=== PATIENT | female | born 1945 | race Caucasian/White ===

== ENCOUNTER 2020-04-28 20:37 | Outpatient (REF) | payer MEDICARE, OTHER, SELFPAY ==
[2020-04-28 21:32] LABS: ALT 22 U/L (14-59); AST 17 U/L (15-37); Albumin 3.6 g/dL (3.4-5.0); Alkaline Phosphatase 58 U/L (46-116); Anion Gap 11.2 mmol/L (3-11); BUN 17 mg/dL (7-18); Bilirubin, Total 0.2 mg/dL (0.2-1.0); CO2 26.8 mmol/L (21.0-32.0); CREATININE 0.5 mg/dL (0.55-1.02); Calcium 9.6 mg/dL (8.5-10.1); Chloride 100 mmol/L (98-107); Glucose 89 mg/dL (74-106); Potassium 4.2 mmol/L (3.5-5.1); Sodium 138 mmol/L (136-145); Total Protein 6.4 g/dL (6.4-8.2)
== END 2020-04-28 20:38 | disposition home or self-care (01) ==
LOC: NCHCN 20:37
PROVIDERS: PCP Internal Medicine; Visit Provider Nurse Practitioner Family
DX: I10 Essential (primary) hypertension (principal)
CPT/HCPCS: 80053

== ENCOUNTER 2020-05-25 20:10 | Outpatient (REF) | payer MEDICARE, OTHER, SELFPAY | END 2020-05-25 20:11 | disposition home or self-care (01) | LOC: NCHCN 20:10 | PROVIDERS: PCP Internal Medicine; Visit Provider Nurse Practitioner Family | DX: R39.15 Urgency of urination (principal) | CPT/HCPCS: 87086 ==

== ENCOUNTER 2020-06-01 15:16 | Outpatient (REF) | payer MEDICARE, OTHER, SELFPAY ==
[2020-06-01 20:16] LABS: HCT 31.8 % (36.0-46.0); HGB 9.9 g/dL (11.2-15.7); MCH 25.6 pg (27.0-33.0); MCHC 31.1 % (32.0-36.0); MCV 82.2 fL (80-95); Platelet Count 522 10^3/uL (130-400); RBC 3.87 10^6/uL (3.93-5.22); RDW 14.9 % (11.7-14.6); RDW-SD 44.4 fL; WBC 10.32 10^3/uL (4.4-10.8)
[2020-06-01 20:48] LABS: Iron 29 ug/dL (50-170); Total Iron Binding Capacity 452 ug/dL (250-450); Transferrin Sat 6 % (15-50)
[2020-06-01 20:54] LABS: COMMENT (LAB VIEW ONLY) 18.92 mg/dL; Microalb ug/mg Crea 23.3 ug/mg Cr
[2020-06-01 21:08] LABS: Anion Gap 9.3 mmol/L (3-11); BUN 20 mg/dL (7-18); CO2 28.7 mmol/L (21.0-32.0); CREATININE 0.7 mg/dL (0.55-1.02); Calcium 10.4 mg/dL (8.5-10.1); Chloride 102 mmol/L (98-107); Ferritin 11 ng/mL (8-252); Folate 5.7 ng/mL (8.6-20.0); Glucose 89 mg/dL (74-106); Potassium 4.5 mmol/L (3.5-5.1); Sodium 140 mmol/L (136-145); Vitamin B12 342 pg/mL (193-986)
== END 2020-06-01 15:17 | disposition home or self-care (01) ==
LOC: NCHCN 15:16
PROVIDERS: PCP Internal Medicine; Visit Provider Nurse Practitioner Family
DX: Z01.818 Encounter for other preprocedural examination (principal)
CPT/HCPCS: 80048; 85027; 82043; 82570; 82607; 82728; 82746; 83540; 83550

== ENCOUNTER 2020-06-27 10:45 | Outpatient (REF) | payer MEDICARE, OTHER, SELFPAY ==
[2020-06-27 15:20] LABS: BUN 14 mg/dL (7-18); CREATININE 0.6 mg/dL (0.55-1.02); Calcium 9.4 mg/dL (8.5-10.1); Chloride 100 mmol/L (98-107); Glucose 79 mg/dL (74-106); Potassium 4.1 mmol/L (3.5-5.1); Sodium 138 mmol/L (136-145)
[2020-06-27 15:32] LABS: HCT 37.4 % (36.0-46.0); HGB 11.7 g/dL (11.2-15.7); MCH 26.6 pg (27.0-33.0); MCHC 31.3 % (32.0-36.0); MPV 11.1 fL (8.0-11.0); Platelet Count 370 10^3/uL (130-400); RDW 19.6 % (11.7-14.6); RDW-SD 59.3 fL; WBC 5.49 10^3/uL (4.4-10.8)
== END 2020-06-27 10:46 | disposition home or self-care (01) ==
LOC: NCHCN 10:45
PROVIDERS: PCP Internal Medicine; Visit Provider Nurse Practitioner Family
DX: D50.9 Iron deficiency anemia, unspecified (principal)
CPT/HCPCS: 80048; 85027

== ENCOUNTER 2020-07-14 08:13 | Outpatient (REF) | payer MEDICARE, OTHER, SELFPAY ==
[2020-07-14 13:05] LABS: HCT 41.1 % (36.0-46.0); HGB 13.1 g/dL (11.2-15.7); MCH 27.6 pg (27.0-33.0); MCHC 31.9 % (32.0-36.0); MCV 86.5 fL (80-95); MPV 11.2 fL (8.0-11.0); Platelet Count 320 10^3/uL (130-400); RBC 4.75 10^6/uL (3.93-5.22); RDW 19.8 % (11.7-14.6); RDW-SD 62.3 fL; WBC 5.01 10^3/uL (4.4-10.8)
[2020-07-14 13:32] LABS: Anion Gap 11.8 mmol/L (3-11); BUN 11 mg/dL (7-18); CO2 26.2 mmol/L (21.0-32.0); CREATININE 0.6 mg/dL (0.55-1.02); Calcium 9.4 mg/dL (8.5-10.1); Chloride 100 mmol/L (98-107); Ferritin 296 ng/mL (8-252); Folate 8.7 ng/mL (8.6-20.0); Glucose 79 mg/dL (74-106); Potassium 4.7 mmol/L (3.5-5.1); Sodium 138 mmol/L (136-145)
[2020-07-14 13:45] LABS: Iron 46 ug/dL (50-170); Total Iron Binding Capacity 311 ug/dL (250-450); Transferrin Sat 15 % (15-50)
== END 2020-07-14 08:14 | disposition home or self-care (01) ==
LOC: NCHCN 08:13
PROVIDERS: PCP Internal Medicine; Visit Provider Nurse Practitioner Family
DX: R63.4 Abnormal weight loss (principal); M16.12 Unilateral primary osteoarthritis, left hip; D50.8 Other iron deficiency anemias
CPT/HCPCS: 80048; 85027; 82728; 82746; 83540; 83550

== ENCOUNTER 2020-07-26 23:10 | Outpatient (REF) | payer MEDICARE, OTHER, SELFPAY ==
[2020-07-26 21:51] LABS: ALT 39 U/L (14-59); AST 19 U/L (15-37); Albumin 4.3 g/dL (3.4-5.0); Alkaline Phosphatase 73 U/L (46-116); Bilirubin, Total 0.3 mg/dL (0.2-1.0); Total Protein 7.1 g/dL (6.4-8.2)
[2020-07-26 22:10] LABS: Bilirubin, Direct 0.1 mg/dL (0.0-0.2)
== END 2020-07-26 23:11 | disposition home or self-care (01) ==
LOC: NCHCN 23:10
PROVIDERS: PCP Internal Medicine; Visit Provider Nurse Practitioner Family
DX: R63.4 Abnormal weight loss (principal)
CPT/HCPCS: 80076

== ENCOUNTER 2020-09-18 12:46 | Outpatient (REF) | payer MEDICARE, OTHER, SELFPAY ==
[2020-09-18 21:20] LABS: Abs Immature Grans 0.02 10^3/uL (0.0-0.06); Absolute Basophil Count 0.06 10^3/uL (0.0-0.2); Absolute Eosinophil Count 0.13 10^3/uL (0.0-0.7); Absolute Lymphocyte Count 1.92 10^3/uL (1.2-3.4); Absolute Neutrophil Count 5.63 10^3/uL (1.2-6.7); Basophils % 0.7; Eosinophils % 1.5; HCT 42.2 % (36.0-46.0); HGB 13.5 g/dL (11.2-15.7); Immature Grans % 0.2; Lymphocytes % 22.7; MCH 29.3 pg (27.0-33.0); MCV 91.5 fL (80-95); MPV 9.7 fL (8.0-11.0); Monocytes % 8.3; Neutrophils % 66.6; Nucleated RBC 0 %; Platelet Count 327 10^3/uL (130-400); RBC 4.61 10^6/uL (3.93-5.22); RDW 15.9 % (11.7-14.6); RDW-SD 52.8 fL; WBC 8.46 10^3/uL (4.4-10.8)
[2020-09-18 21:48] LABS: Iron 60 ug/dL (50-170); Total Iron Binding Capacity 306 ug/dL (250-450); Transferrin Sat 20 % (15-50)
[2020-09-18 21:54] LABS: ALT 32 U/L (14-59); AST 17 U/L (15-37); Albumin 4.1 g/dL (3.4-5.0); Alkaline Phosphatase 78 U/L (46-116); Anion Gap 5.7 mmol/L (3-11); BUN 23 mg/dL (7-18); Bilirubin, Total 0.2 mg/dL (0.2-1.0); CO2 26.3 mmol/L (21.0-32.0); CREATININE 0.4 mg/dL (0.55-1.02); Calcium 9.4 mg/dL (8.5-10.1); Chloride 100 mmol/L (98-107); Ferritin 157 ng/mL (8-252); Glucose 99 mg/dL (74-106); Potassium 4.6 mmol/L (3.5-5.1); Sodium 132 mmol/L (136-145); TSH (W/Ref FT4) 0.82 uIU/mL (0.36-3.74)
[2020-09-18 22:06] LABS: Vitamin D 25 Total 49.1 ng/mL (30-100)
== END 2020-09-18 12:47 | disposition home or self-care (01) ==
LOC: NCHCN 12:46
PROVIDERS: PCP Internal Medicine; Visit Provider Internal Medicine
DX: E55.9 Vitamin D deficiency, unspecified; R63.4 Abnormal weight loss
CPT/HCPCS: 80053; 82306; 82728; 83540; 83550; 84443; 85014; 85018; 85025

== ENCOUNTER 2020-10-23 15:56 | Outpatient (REF) | payer MEDICARE, OTHER, SELFPAY ==
[2020-10-23 17:45] LABS: Anion Gap 13.9 mmol/L (3-11); BUN 21 mg/dL (7-18); CO2 22.1 mmol/L (21.0-32.0); CREATININE 0.5 mg/dL (0.55-1.02); Calcium 8.7 mg/dL (8.5-10.1); Chloride 105 mmol/L (98-107); Glucose 91 mg/dL (74-106); Potassium 3.9 mmol/L (3.5-5.1); Sodium 141 mmol/L (136-145)
== END 2020-10-23 15:57 | disposition home or self-care (01) ==
LOC: NCHCN 15:56
PROVIDERS: PCP Internal Medicine; Visit Provider Internal Medicine
DX: E87.1 Hypo-osmolality and hyponatremia (principal); B96.81 Helicobacter pylori [H. pylori] as the cause of diseases classified elsewhere
CPT/HCPCS: 80048

== ENCOUNTER 2020-10-26 14:59 | Outpatient (REF) | payer MEDICARE, SELFPAY ==
[2020-10-31 14:58] LABS: Helicobacter pylori Ag, Feces Negative (Negative)
== END 2020-10-26 15:00 | disposition home or self-care (01) ==
LOC: NCHCN 14:59
PROVIDERS: PCP Internal Medicine; Visit Provider Internal Medicine
DX: B96.81 Helicobacter pylori [H. pylori] as the cause of diseases classified elsewhere (principal); R63.4 Abnormal weight loss
CPT/HCPCS: 87338

== ENCOUNTER 2021-04-24 18:18 | Outpatient (REF) | payer MEDICARE, OTHER, SELFPAY ==
[2021-04-24 17:36] LABS: Anion Gap 9.8 mmol/L (3-11); BUN 22 mg/dL (7-18); CO2 24.2 mmol/L (21.0-32.0); CREATININE 0.5 mg/dL (0.55-1.02); Calcium 8.9 mg/dL (8.5-10.1); Calculated LDL 117 mg/dL (<100); Chloride 103 mmol/L (98-107); Cholesterol 216 mg/dL (<200); Glucose 92 mg/dL (74-106); HDL Cholesterol 88 mg/dL (40-60); Potassium 4.5 mmol/L (3.5-5.1); Sodium 137 mmol/L (136-145); Triglyceride 58 mg/dL (<150)
== END 2021-04-24 18:19 | disposition home or self-care (01) ==
LOC: NCHCN 18:18
PROVIDERS: PCP Internal Medicine; Visit Provider Nurse Practitioner Family
DX: Z00.00 Encounter for general adult medical examination without abnormal findings (principal); R63.4 Abnormal weight loss; I10 Essential (primary) hypertension
CPT/HCPCS: 80048; 80061

== ENCOUNTER 2022-11-18 14:14 | Outpatient (REF) | payer MEDICARE, SELFPAY ==
[2022-11-18 16:31] LABS: Anion Gap 7.9 mmol/L (3-11); BUN 22 mg/dL (7-18); CO2 26.1 mmol/L (21.0-32.0); CREATININE 0.7 mg/dL (0.55-1.02); Calcium 9.4 mg/dL (8.5-10.1); Chloride 102 mmol/L (98-107); Estimated GFR 90.14 (mL/min/1.73m2); Glucose 96 mg/dL (74-106); Potassium 4.3 mmol/L (3.5-5.1); Sodium 136 mmol/L (136-145)
[2022-11-18 17:38] LABS: Vitamin D 25 Total 36.6 ng/mL (30-100)
== END 2022-11-18 14:15 | disposition home or self-care (01) ==
LOC: NCHCN 14:14
PROVIDERS: PCP Internal Medicine; Visit Provider Nurse Practitioner Family
DX: D50.8 Other iron deficiency anemias (principal); E55.9 Vitamin D deficiency, unspecified; Z51.81 Encounter for therapeutic drug level monitoring
CPT/HCPCS: 80048; 82306; 83735

== ENCOUNTER 2023-11-25 18:39 | Outpatient (REF) | payer MEDICARE, SELFPAY ==
--- OUTSIDE RECORDS SUMMARY | 2023-11-25 18:49 | XMS_ITS | Encounter Summary ---
Author Organization [facility] Address [address] [place] [address] Care Team Providers Care Theatrical Agent Name Role Phone Adela Cohn CONTAMINATION CONSULTANT Primary Care Provider [phone] Reason for Visit * Reason Comments Follow-up left leg numbness, r ight leg just starting to have issues Encounter Details Date Type Department Care Team (Latest Contact Info) Description 08/22/2021 11:45 EDT Office Visit [facility] Vascular Surgery - Main [place] [address] [place] [address] Emigdio Angel MD Venous insufficiency (Primary Dx) Social History Tobacco Use Types Packs/Day Years Used Date Smoking Tobacco: Never Smokeless Tobacco: Never Sex and Gender Information Value Date Recorded Sex Assigned at Not on file Gender Identity Not on file Sexual Orientation Not on file documented as of this encounter Last Filed Vital Signs Vital Sign Reading Time Taken Comments Blood Pressure 120/80 08/22/2021 1149 EDT Pulse 81 08/22/2021 1149 EDT Temperature - - Respiratory Rate - - Oxygen Saturation 100% 08/22/2021 1149 EDT Inhaled Oxygen Concentration - - Weight - - Height - - Body Mass Index - - documented in this encounter Progress Notes * Emigdio Angel MD - 08/22/2021 1145 EDT CC: RLE spider veins SUBJECTIVE: Patient is very and seen for her left leg venous insufficiency. Patient follows up today with a right lower extremity venous ultrasound. She has painful bulging veins in that leg as well. No past medical history on file. There is no problem list on file for this patient. No past surgical history on file. Family History Problem Relation Age of Onset ??? Heart Disease Mother ??? Stroke Father ??? Varicose Veins Maternal Aunt ??? Varicose Veins Maternal Uncle ??? Varicose Veins Paternal Aunt ??? Varicose Veins Paternal Uncle Social History Socioeconomic History ??? Marital status: Spouse name: Not on file ??? Number of children: Not on file ??? Years of education: Not on file ??? Highest education level: Not on file Occupational History ??? Not on file Tobacco Use ??? Smoking status: Never Smoker ??? Smokeless tobacco: Never Used Substance and Sexual Activity ??? Alcohol use: Not on file ??? Drug use: Not on file ??? Sexual activity: Not on file Other Topics Concern ??? Not on file Social History Narrative ??? Not on file Social Determinants of Health Financial Resource Strain: Not on file Food Insecurity: Not on file Transportation Needs: Not on file Physical Activity: Not on file Stress: Not on file Social Connections: Not on file Current Outpatient Medications Medication ??? alendronate (FOSAMAX) 35 mg tablet ??? ascorbic acid (VITAMIN C ORAL) ??? calcium carbonate (TUMS) 200 mg calcium (500 mg) tablet,chewable ??? cholecalciferol, Vitamin D3, (VITAMIN D3) 50 mcg (2,000 unit) tablet ??? omeprazole (PRILOSEC) 20 mg capsule No current facility-administered medications for this visit. Allergies Allergen Reactions ??? Epinephrine Flushing OBJECTIVE: Physical Exam: GEN: alert, cooperative and no distress HEENT: eoemi LUNGS: clear to auscultation bilaterally HEART: regular rate and rhythm ABDOMEN: soft, non-tender; bowel sounds normal; no masses, no organomegaly EXTREMITIES: extremities normal, atraumatic, no cyanosis or edema and varicose veins noted SKIN: Skin color, texture, turgor normal. No rashes or lesions VASCULAR: warm, pink, capillary refill brisk ? DIAGNOSTIC DATA: No reflux noted in the right deep or superficial veins. The right great saphenous vein is not a single continuous vessel starting at the distal thigh. No evidence of deep or superficial venous thrombosis in the right lower extremity. Right Diameter Right Reflux Great Saphenous Junction 0.37 cm 0.0 s Great Saphenous Prox Thigh 0.28 cm 0.0 s Great Saphenous Mid Thigh 0.27 cm 0.0 s Small Saphenous Prox Calf 0.16 cm 0.0 s IMPRESSION: RLE spider veins PLAN: - set up for RLE sclero injections documented in this encounter Plan of Treatment Not on file documented as of this encounter Visit Diagnoses Diagnosis Venous insufficiency- Primary Unspecified venous (peripheral) insufficiency documented in this encounter Care Teams Theatrical Agent Relationship Specialty Start Date End Date Adela Cohn FNP [address] [place] [id number] PCP - General Family Medicine - Primary Care 06/08/21 documented as of this encounter
--- OUTSIDE RECORDS SUMMARY | 2023-11-25 18:49 | XMS_ITS | Encounter Summary ---
Author Organization [facility] Address [address] [place] [address] Care Team Providers Care Telecom Specialist Name Role Phone Adela Cohn UNION ORGANIZER Primary Care Provider Reason for Visit * Reason Comments New Patient Visit Left leg varicose ve ins * Referral (Routine) - Receiving Office to Obtain Authorization Specialty Diagnoses / Procedures Referred By Bobo bunch Referred To Contact Vascular Surgery Diagnoses Asymptomatic varicose veins of unspecified lower extremity Adela Cohn, UNION ORGANIZER [address] [place] [address] Surgery [address] [place] [id number] Referral ID Status Reason Start Date Expiration Date Visits Requested Visits Authorized [id number] Receiving Office to Obtain Authorization 1 1 Encounter Details Date Type Department Care Team (Latest Contact Info) Description 06/08/2021 13:00 EDT Initial consult [facility] Vascular Surgery - Main [place] [address] [place] [address] Emigdio Angel MD Venous insufficiency of left lower extremity (Primary Dx) Social History Tobacco Use Types Packs/Day Years Used Date Smoking Tobacco: Never Smokeless Tobacco: Never Sex and Gender Information Value Date Recorded Sex Assigned at Not on file Gender Identity Not on file Sexual Orientation Not on file documented as of this encounter Last Filed Vital Signs Vital Sign Reading Time Taken Comments Blood Pressure 130/88 06/08/2021 1221 EDT Pulse 94 06/08/2021 1218 EDT Temperature - - Respiratory Rate - - Oxygen Saturation 98% 06/08/2021 1218 EDT Inhaled Oxygen Concentration - - Weight 40.8 kg (90 lb) 06/08/2021 1218 EDT Height 147.3 cm (4' 10) 06/08/2021 1218 EDT Body Mass Index 18.81 06/08/2021 1218 EDT documented in this encounter Progress Notes * Emigdio Angel MD - 06/08/2021 1300 EDT [facility] Vascular Surgery H & P Consultation Note - Initial Visit Note Date: 06/08/2021 Patient: Cheri Ibrahim Subjective: Cheri Ibrahim is a 75 y.o. female who presents today for New Patient Visit (Left leg varicose veins) Consult requested by dAela Cohn Patient History of Present Illness: The patient complains of varicose veins in the left leg. The patient is quite active and with her bulging veins has associated swelling, and aches. She denies history of ulcer, DVT, or bleeding. She is worn compression stockings for over 3 months and it helped her symptoms. Her pain can be 4 out of10. The patient's history, allergies, and medications were documented, reviewed, and updated. Medications: Current Outpatient Medications Medication ??? alendronate (FOSAMAX) 35 mg tablet ??? ascorbic acid (VITAMIN C ORAL) ??? calcium carbonate (TUMS) 200 mg calcium (500 mg) tablet,chewable ??? cholecalciferol, Vitamin D3, (VITAMIN D3) 50 mcg (2,000 unit) tablet ??? omeprazole (PRILOSEC) 20 mg capsule No current facility-administered medications for this visit. History was documented as follows: PMH PSH No past medical history on file. No past surgical history on file. Social History Family History Social History Tobacco Use ??? Smoking status: Never Smoker ??? Smokeless tobacco: Never Used Substance Use Topics ??? Alcohol use: Not on file Family History Problem Relation Age of Onset ??? Heart Disease Mother ??? Stroke Father ??? Varicose Veins Maternal Aunt ??? Varicose Veins Maternal Uncle ??? Varicose Veins Paternal Aunt ??? Varicose Veins Paternal Uncle Allergies Allergies Allergen Reactions ??? Epinephrine Flushing Review of Systems A comprehensive review of systems was negative. Objective: Physical Examination: Vitals: BP 130/88 (BP Cuff Location: Right arm) Pulse 94 Ht (!) 147.3 cm (58) Wt (!) 40.8 kg(90 lb) SpO2 98% BMI 18.81 kg/m?? General Healthy-appearing 75 y.o. white female in no apparent distress who looks her stated age. Eyes: scelra non-icteric Musculoskeletal: No joint effusions or tenderness. Extremities: No bony abnormality. No joint effusions. Varicose veins palpable left leg with swelling Skin: Warm and pink. No lesions or stasis dermatitis. Hematologic: There is no bruising. Neurologic: Gait and stance are normal; Strength Upper and lower extremities, 5/5. There is no tremor or slurred speech. Vascular: warm, pink, palp pulses Non-invasive Vascular Lab Tests: ??? Deep and segmental superficial venous insufficiency noted within the left lower extremity. ??? No evidence of deep or superficial venous thrombosis in the left lower extremity. Left Diameter Left Reflux Great Saphenous Junction 0.33 cm 0.0 s Great Saphenous Mid Thigh 0.21 cm 1.4 s Small Saphenous Prox Calf 0.22 cm 0.0 s Anterior Saphenous 0.16 cm 0.0 s The left femoral vein in the proximal thigh had more than 2 seconds of reflux. The left femoral vein in the mid thigh had 0.5 to 2 seconds of reflux. The left femoral vein in the distal thigh had 0.5to 2 seconds of reflux. Varicose Vein Conservative Measures Laterality: left Has the patient worn compression stockings for minimum of 3 months? Yes How effective are the stockings? Did they help or hinder? Help Any edema or swelling in Legs? Yes Any bleeding? No Does patient avoid standing or sitting in one position for more than 30 minutes? Yes Does the patient elevate their legs above level of the heart during the day to alleviate pain? Yes How often? daily Does patient avoid sitting with legs crossed? Yes How often does the patient exercise? (I.e walking) time/week? Duration? How far? daily What is the patient's pain levels on a scale of 1-10 (10 being the worst)? 4 Do the varicose veins effect the patient's activities of daily living? Yes What activities? exercise Does the patient take any medications for pain? No If so, what? n/a Does the patient tolerate NSAID'S? Yes Does the patient avoid alcohol? Yes Does the patient avoid high sodium foods? Yes Has the patient lost weight? No Has the patient failed compression stock wearing? Yes Assessment: Symptomatic left varicose veins and venous insufficiency. We discussed varicose veins and their pathophysiology. I explained that we cannot cure varicose veins and that they could recur later on in life, even if we treat those that are present today. I explained that invasive treatment of varicose veins was elective and that there was no risk to life or limb from varicose veins. I discussed the options for treatment, including compression, sclerotherapyand surgery. We discussed the risks and benefits of surgery, including the risks of anesthesia and the risk of bleeding or infection. We also discussed that surgery would produce scars and surgery would require time off from work. We discussed newer surgical techniques including radiofrequency ablat ion (???closure procedure?? ). We discussed injection sclerotherapy. We discussed the risks of allergic reactions, ulceration and discoloration. In particular we discussed the cosmetic risk of discoloration from injection of varicose veins, something that we have little control over, unfortunately.We discussed the need to wear compression dressings for up to a week after injection of larger veins and that more than one injection session might be necessary. I also explained that treatment of spider veins or varicose veins for cosmetic reasons only would not be covered by insurance. Plan: - cont compression - LLE sclero Submitted by: Emigdio Angel MD CC: Adela Cohn documented in this encounter Plan of Treatment Not on file documented as of this encounter Visit Diagnoses Diagnosis Venous insufficiency of left lower extremity- Primary documented in this encounter Historical Medications * This list may reflect changes made after this encounter. Medication Sig Dispensed Refills Start Date End Date ascorbic acid (VITAMIN C ORAL) Take by mouth. calcium carbonate (TUMS) 200 mg calcium (500 mg) tablet,chewable Take 1 Tablet by mouth 3 times daily. cholecalciferol, Vitamin D3, (VITAMIN D3) 50 mcg (2,000 unit) tablet Take by mouth. omeprazole (PRILOSEC) 20 mg capsule Take 20 mg by mouth as needed. alendronate (FOSAMAX) 35 mg tablet Take 70 mg by mouth every 7 days. With full glass water,on empty stomach; nothing by mouth or lie down for next 30 min added in this encounter Care Teams Telecom Specialist Relationship Specialty Start Date End Date Adela Cohn FNP [address] [place] [phone] PCP - General Family Medicine - Primary Care 06/08/21 documented as of this encounter
--- OUTSIDE RECORDS SUMMARY | 2023-11-25 18:49 | XMS_ITS ---
Author Organization Unknown Address [address] [place] [phone] Phone Care Team Providers Care Pelletizer Name Role Phone SHERI GIBSON Attending Unavail able MARTY James Primary Unavailable Social History Type Status Start Date End Date Code Code Syst em Smoking History Never smoker (Never Smoked) 233754301 SNOMED CT Sex Female Hospital Discharge Instructions Should you have any questions prior to discharge, please contact a member of your healthcare team. If you have left the hospital and have any questions, please contact your primary care physician. Reason For Referral No Data Found Allergies and Adverse Reactions Allergy Substance Reaction Severity Start Date Concern Status Co de Code System No Known Drug Allergies Active 384259310 SNOMED-CT Plan of Treatment Pre-Op Testing 07/13/2020 Pre-Op Testing 05/25/2020 BONE DENSITY DEXA SPINE & HIP 4 BONE DENSITY DEXA SPINE & HIP 2 Encounters Encounter Diagnosis Start Date Code Code Sys tem Obstructive sleep apnea (adult) (pediatric) 09/02/2021 SNOMED-CT Personal Care Team Section Performer Name Performer Role Active Date Inactive Da te
--- OUTSIDE RECORDS SUMMARY | 2023-11-25 18:49 | XMS_ITS | Referral Summary ---
Author Organization [facility] Address [address] [place] [address] Care Team Providers Care Office Support Clerk Name Role Phone Adela Cohn Erika [facility] Primary Care Provider [phone] Allergies Active Allergy Reactions Criticality Noted Date Comments Epinephrine Flushing 06/08/2021 Medications Medication Sig Dispensed Refills Start Date End Date Status alendronate (FOSAMAX) 35 mg tablet Take 70 mg by mouth every 7 days. With full glass water,on empty stomach; nothing by mouth or lie down for next 30 min Active omeprazole (PRILOSEC) 20 mg capsule Take 20 mg by mouth as needed. Active cholecalciferol, Vitamin D3, (VITAMIN D3) 50 mcg (2,000 unit) tablet Take by mouth. Active calcium carbonate (TUMS) 200 mg calcium (500 mg) tablet,chewable Take 1 Tablet by mouth 3 times daily. Active ascorbic acid (VITAMIN C ORAL) Take by mouth. Active Social History Tobacco Use Types Packs/Day Years Used Date Smoking Tobacco: Never Smokeless Tobacco: Never Sex and Gender Information Value Date Recorded Sex Assigned at Not on file Gender Identity Not on file Sexual Orientation Not on file Last Filed Vital Signs Vital Sign Reading Time Taken Comments Blood Pressure 108/76 11/09/2021 0859 EDT Pulse 78 11/09/2021 0859 EDT Temperature - - Respiratory Rate - - Oxygen Saturation 98% 11/09/2021 0859 EDT Inhaled Oxygen Concentration - - Weight 40.8 kg (90 lb) 06/08/2021 1218 EDT Height 147.3 cm (4' 10) 06/08/2021 1218 EDT Body Mass Index 18.81 06/08/2021 1218 EDT Functional Status Functional Status Response Date of Assess ment Because of a physical, menta l, or emotional condition, does this person have difficulty doing errands alone such as visiting a doctor's office or shopping? No 10/12/2021 Cognitive Status Response Date of Assessm ent Because of a physical, menta l, or emotional condition, does this person have serious difficulty concentrating, remembering, or making decisions? No 10/12/2021 Plan of Treatment Not on file Care Teams Office Support Clerk Relationship Specialty Start Date End Date Adela Cohn FNP [address] [place] [phone] PCP - General Family Medicine - Primary Care 06/08/21
--- OUTSIDE RECORDS SUMMARY | 2023-11-25 18:49 | XMS_ITS | Encounter Summary ---
Author Organization [facility] Address [address] [place] [address] Care Team Providers Care Lining Ironer Name Role Phone Adela Cohn REFUELING RAMP ATTENDANT Primary Care Provider [phone] Reason for Visit * Reason Comments Injections Encounter Details Date Type Department Care Team (Latest Contact Info) Description 11/09/2021 9:00 EDT Procedure visit [facility] Vascular Surgery - Main [address] [address] Emigdio Angel MD Venous insufficiency (Primary Dx) [...] Index - - documented in this encounter Functional Status Functional Status Response Date of [...] concentrating, remembering, or making decisions? No 10/12/2021 documented as of this encounter Patient Instructions * Patient Instructions* Diandra Ziegler - 11/09/2021 9:00 EDT documented in this encounter Progress Notes * Emigdio Angel MD - 11/09/2021 0900 EDT 10/12/21 LLE sclero 1. VA INJECTION SCLEROSANT MULTIPLE INCMPTNT VEINS [41176 (CPT??)] Informed consent was obtained ahead of time. The patient was laid in the supine position in the clinic bed. The spider veins on her right leg were prepped with alcohol wipe and then injected with 0.1% sotradecol. 15 syringes were used, these with 1 mL within each. We used cotton and Coban for compression. The patient tolerated the procedure well. The patient suffers from pain and swelling in her legs from her venous disease * Barby Schneider RN - 11/09/2021 0900 EDT Sclero injection assistance provided to Dr. Angel. 15 total syringes used. Discharge instructions provided. Pt tolerated very well. I was supervised by Dr. Angel who was present and immediately available in the office suite. BARBY SCHNEIDER RN 11/12/2021 16:11 documented in this encounter Plan of Treatment Not on file documented as of this encounter Visit Diagnoses Diagnosis Venous insufficiency- Primary Unspecified venous (peripheral) insufficiency documented in this encounter Care Teams Lining Ironer Relationship Specialty Start Date End Date Adela Cohn FNP [address] [place] [phone] PCP - General Family Medicine - Primary Care 06/08/21 documented as of this encounter
--- OUTSIDE RECORDS SUMMARY | 2023-11-25 18:49 | XMS_ITS | Clinical Summary ---
Author Organization [facility] Address [address] [place] [address] Care Team Providers Care Spring Fitter Helper Name Role Phone Adela Cohn Erika [employer] Primary Care Provider [phone] Allergies Active Allergy Reactions Criticality Noted Date [...] (VITAMIN C ORAL) Take by mouth. Active Family History Medical History Relation Comments Stroke Father Varicose Veins Maternal Aunt Varicose Veins Maternal Uncle Heart Disease Mother Varicose Veins Paternal Aunt Varicose Veins Paternal Uncle Relation Status Comments Father Maternal Aunt Maternal Uncle Mother Paternal Aunt Paternal Uncle Social History Tobacco Use Types Packs/Day Years Used Date Smoking Tobacco: Never Smokeless Tobacco: Never Sex and Gender Information Value Date Recorded Sex Assigned at Not on file Gender Identity Not on file Sexual Orientation Not on file Obstetrics History Last Filed Vital Signs Vital Sign Reading Time Taken Comments Blood Pressure 108/76 11/09/2021 0859 EDT Pulse 78 11/09/2021 0859 EDT Temperature - - Respiratory Rate - - Oxygen Saturation 98% 11/09/2021 0859 EDT Inhaled Oxygen Concentration - - Weight 40.8 kg (90 lb) 06/08/2021 1218 EDT Height 147.3 cm (4' 10) 06/08/2021 1218 EDT Body Mass Index 18.81 06/08/2021 1218 EDT Plan of Treatment Health Maintenance Due Date Last Done Comments Hepatitis C Screen 1945 RSV Immunization ( o r 60+ Years) (1 - 1-dose 60+ series) 2006 Fall Risk Screening 11/21/2011 COVID-19 Vaccine (2022-24 season) 2022 Care Teams Spring Fitter Helper Relationship Specialty Start Date End Date Adela Cohn FNP [address] [place] [phone] PCP - General Family Medicine - Primary Care 06/08/21
--- OUTSIDE RECORDS SUMMARY | 2023-11-25 18:49 | XMS_ITS | Encounter Summary ---
Author Organization [facility] Address [address] [place] [address] Care Team Providers Care Wallpaper Hanger Helper Name Role Phone Unavailable Primary Care Provider Unavailabl e Encounter Details Date Type Department Care Team (Latest Contact Info) Description 06/28/2001 10:37 EDT - 06/28/2001 11:59 EDT Hospital Encounter [facility] Emergency Department - [facility] [address], [place] [id number] Emergency, Default, MD Discharge Disposition: Home or Self Care Social History Tobacco Use Types Packs/Day Years Used Date Smoking Tobacco: Never Assessed Sex and Gender Information Value Date Recorded Sex Assigned at Not on file Gender Identity Not on file Sexual Orientation Not on file documented as of this encounter Discharge Disposition Disposition Code Departure Means Destination Home or Self Care documented in this encounter Plan of Treatment Not on file documented as of this encounter Procedures Procedure Name Priority Date/Time Associated Diagnosis Comments THORACIC SPINE 3 VIEWS Routine 06/28/2001 12:44 EDT CERVICAL SPINE AP&LAT Routine 06/28/2001 12:44 EDT documented in this encounter Results * THORACIC SPINE 3 VIEWS (06/28/2001 12:44 EDT) Anatomical Region Laterality Modality Other 06/28/2001 12:4 4 EDT Narrative 12/07/2008 3:41 EDT S/P PAIN, LOADING, C-SPINE INJURY WITH LEFT UE PARASTESIS R/O FRACTURE THORACIC SPINE, THREE VIEWS, AND CERVICAL SPINE, TWO TO THREE VIEWS DATE: 06/28/2001 TIME: 1150 HISTORY: Cervical spine injury. Rule out fracture. FINDINGS: AP, lateral, and odontoid views of the cervical spine show normal vertebral alignment. No prevertebral soft tissue swelling is seen. The disc heights are well maintained. There is mild osteophyte formation at C5-6 and C6-7. C7-T1 is not well seen on these views, nor the tip of the odontoid. No definite fracture is seen. Three views of the thoracic spine show normal vertebral alignment. There are minimal degenerative changes. Minimal anterior wedging is seen at the T7 and T8 vertebral bodies. C7-T1 is seen on the swimmer's view and appears normal. Incidental note is made of calcified mediastinal nodes and a granuloma. IMPRESSIONS: 1. 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 No definite fracture is seen of the cervical spine. 2. Minimal anterior wedging at T7 and T8 with degenerative changes of the thoracic spine. No thoracic fracture is seen. /law Procedure Note Carlos Rodriguez MD / Des Chiu MD - 12/07/2008 S/P PAIN, LOADING, C-SPINE INJURY WITH LEFT UE PARASTESIS R/O FRACTURE THORACIC SPINE, THREE VIEWS, AND CERVICAL SPINE, TWO TO THREE VIEWS DATE: 06/28/2001 TIME: 1150 HISTORY: Cervical spine injury. Rule out fracture. FINDINGS: AP, lateral, and odontoid views of the cervical spine show normal vertebral alignment. No prevertebral soft tissue swelling is seen. The disc heights are well maintained. There is mild osteophyte formation at C5-6 and C6-7. C7-T1 is not well seen on these views, nor the tip of the odontoid. No definite fracture is seen. Three views of the thoracic spine show normal vertebral alignment. There are minimal degenerative changes. Minimal anterior wedging is seen at the T7 and T8 vertebral bodies. C7-T1 is seen on the swimmer's view and appears normal. Incidental note is made of calcified mediastinal nodes and a granuloma. IMPRESSIONS: 1. 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 No definite fracture is seen of the cervical spine. 2. Minimal anterior wedging at T7 and T8 with degenerative changes of the thoracic spine. No thoracic fracture is seen. /law Yessy SHAH DI[facility]NOSTIC I MAGING ORDERABLES * CERVICAL SPINE AP&LAT (06/28/2001 12:44 EDT) Anatomical Region Laterality Modality Other 06/28/2001 12:4 4 EDT Narrative 12/07/2008 3:41 EDT S/P PAIN, LOADING, C-SPINE INJURY WITH LEFT UE PARASTESIS R/O FRACTURE Procedure Note Carlos Rodriguez MD / Des Chiu MD - 12/07/2008 S/P PAIN, LOADING, C-SPINE INJURY WITH LEFT UE PARASTESIS R/O FRACTURE Yessy SHAH DIAGNOSTIC I MAGING ORDERABLES documented in this encounter Visit Diagnoses Not on filedocumented in this encounter
--- OUTSIDE RECORDS SUMMARY | 2023-11-25 18:49 | XMS_ITS | Encounter Summary ---
Author Organization [facility] Address [address] [place] [address] Care Team Providers Care Passenger Service Supervisor Name Role Phone Adela Cohn [facility] Primary Care Provider [phone] Reason for Visit * Vascular Lab (Routine) - Authorization Not Required Specialty Diagnoses / Procedures Referred By Contac t Referred To Contact Diagnoses Varicose veins of left lower extremity Procedures US VARICOSE VEIN DUPLEX Emigdio Angel MD [address] [place], [place] [id number] [place] [address] Vascular Lab Referral ID Status Reason Start Date Expiration Date Visits Requested Visits Authorized [id number] Authorization Not Required 04/27/2021 1 1 Encounter Details Date Type Department Care Team (Latest Contact Info) Description 06/08/2021 11:30 EDT Ancillary Procedure [facility] Vascular Surgery - Main [place] [address] [place] [address] Varicose veins of left lower extremity Social History Tobacco Use Types Packs/Day Years Used Date Smoking Tobacco: Never Smokeless Tobacco: Never Sex and Gender Information Value Date Recorded Sex Assigned at Not on file Gender Identity Not on file Sexual Orientation Not on file documented as of this encounter Plan of Treatment Not on file documented as of this encounter Procedures Procedure Name Priority Date/Time Associated Diagnosis Comments ORDERS - SCANNED 10/24/2021 10:0 7 EDT US VARICOSE VEIN DUPLEX LEFT Routine 06/08/2021 11:57 EDT Varicose veins of left lower extremity documented in this encounter Results * ORDERS - SCANNED (10/24/2021 10:07 EDT) 10/24/2021 10:0 7 EDT Scan 2 Row Boss Hoeing ADMISSION ORDERABLE S * US VARICOSE VEIN DUPLEX LEFT (06/08/2021 11:57 EDT) Left SSPC cielo 0.22 cm MERGE CARDIO Left GSJ cielo 0.33 cm MERGE CARDIO Left GSJ reflux 0.0 s MERGE CARDIO Left GSMT cielo 0.21 cm MERGE CARDIO Left GSMT reflux 1.4 s MERGE CARDIO Left SSPC reflux 0.0 s MERGE CARDIO Left AAS cielo 0.16 cm MERGE CARDIO Left AAS reflux 0.0 s MERGE CARDIO Anatomical Region Laterality Modality Vascular Ultrasound Narrative 06/08/2021 22:06 EDT ?Deep and segmental superficial venous insufficiency noted within the left lower extremity. ?No evidence of deep or superficial venous thrombosis in the left lower extremity. Left Lower Venous The left femoral vein in the proximal thigh had more than 2 seconds of reflux. The left femoral vein in the mid thigh had 0.5 to 2 seconds of reflux. The left femoral vein in the distal thigh had 0.5 to 2 seconds of reflux. Left Saphenous Venous The right greater saphenous vein was not visualized within the proximal thigh, consistent with prior procedure. Cluster of grapes sign seen in the mid thigh, with a short segment recannalization of the left greater saphenous vein. The distal thigh and knee segment of the great saphenous vein was not well visualized. Left Lower Venous Other The left external iliac, common femoral, proximal greater saphenous, proximal profunda femoris, femoral, popliteal, peroneal, and posterior tibial veins demonstrate normal Doppler flow/waveforms and compression. Venous HPI and Indications Varicose veins with prior left greater saphenous vein ablation Venous Past Medical History Varicose veins. Prior left greater saphenous vein ablation approx. 10 yrs ago- per patient Emigdio Angel MD IMG US VASCULAR O RDERABLES documented in this encounter Visit Diagnoses Diagnosis Varicose veins of left lower extremity documented in this encounter Care Teams Passenger Service Supervisor Relationship Specialty Start Date End Date Adela Cohn FNP [address] [place] [address] PCP - General Family Medicine - Primary Care 06/08/21 documented as of this encounter
--- OUTSIDE RECORDS SUMMARY | 2023-11-25 18:49 | XMS_ITS | Encounter Summary ---
Author Organization [facility] Address [address] [place] [address] Care Team Providers Care Drill Foreman Name Role Phone Adela Cohn [facility] Primary Care Provider [phone] Reason for Visit * Reason Comments Injections * Prior Authorization (Routine) - Closed Specialty Diagnoses / Procedures Referred By Contac t Referred To Contact Vascular Surgery Diagnoses Venous insufficiency (chronic) (peripheral) Procedures MI INJECTION SCLEROSANT MULTIPLE INCMPTNT VEINS Emigdio Angel MD [address] [place] [address] Emigdio Angel MD [address] [place] [id number] Referral ID Status Reason Start Date Expiration Date Visits Re quested Visits Authorized [id number] Closed 02/23/2022 1 1 Encounter Details Date Type Department Care Team (Latest Contact Info) Description 10/12/2021 9:00 EDT Procedure visit [facility] Vascular Surgery - Main [place] [address] [place] [address] Emigdio Angel MD Venous insufficiency (Primary Dx) Social History Tobacco Use Types Packs/Day Years Used Date Smoking Tobacco: Never Smokeless Tobacco: Never Sex and Gender Information Value Date Recorded Sex Assigned at Not on file Gender Identity Not on file Sexual Orientation Not on file documented as of this encounter Last Filed Vital Signs Vital Sign Reading Time Taken Comments Blood Pressure 126/78 10/12/2021 0856 EDT Pulse 75 10/12/2021 0856 EDT Temperature - - Respiratory Rate - - Oxygen Saturation 98% 10/12/2021 0856 EDT Inhaled Oxygen Concentration - - Weight [...] No 10/12/2021 documented as of this encounter Progress Notes * Emigdio Angel MD - 10/12/2021899 EDT CC: Varicose Veins Sclero injections left leg 1. MI INJECTION SCLEROSANT MULTIPLE INCMPTNT VEINS [05065 (CPT??)] Informed consent was obtained ahead of time. The patient was laid in the supine position in the clinic bed. The varicose veins on her left leg were prepped with alcohol wipe and then injected with 0.1% sotradecol. 13 syringes were used, these with 1 mL within each. We used cotton and Coban for compression. The patient tolerated the procedure well. * Gisele Madison RN - 10/12/2021899 EDT Used Sotradecol 1%, diluted to 0.1% with 9mL of normal saline and 1mL Sotradecol. [facility] 27549-021-82 Lot # [id number] and expiration date of 07/16. used 1.3mL of Sotradecol for the procedure. GISELE MADISON RN 10/12/2021 13:13 documented in this encounter Plan of Treatment Not on file documented as of this encounter Visit Diagnoses Diagnosis Venous insufficiency- Primary Unspecified venous (peripheral) insufficiency documented in this encounter Care Teams Drill Foreman Relationship Specialty Start Date End Date Adela Cohn FNP [address] [place] [phone] PCP - General Family Medicine - Primary Care 06/08/21 documented as of this encounter
--- OUTSIDE RECORDS SUMMARY | 2023-11-25 18:49 | XMS_ITS ---
Author Organization Unknown Address [address] [place] [phone] Phone Care Team Providers Care Aromatherapist Name Role Phone HOLLIS PATEL Attending Unavailable MARTY James Primary Unavailable Results XR PELVIS AND HIP LAT LT - C ompleted: 08/14/2021 10:21 LOINC: PELVIS AND LEFT HIP - 2 VIEW S:Comparison is made with 09/12/20. There are stable post-surgical changes of a left total hip replacement. The orthopaedic hardware appears in good position. The bones are stable and intact. Stable degenerative changes are seen in the right hip. There are degenerative changes seen in the lower lumbar spine. The soft tissues are unremarkable. IMPRESSION:Stable left THR. Dictated by: BALTA RODRIGUEZ MD Transcribed by: MARCIA 08/14/21/10:04 D Saturday, August 14, 2021 8:43:13 AM [id number] Electronically Reviewed and Signed By: SHILO RODRIGUEZ MD 08/14/21 19:26 Copy for: 185 [facility]ALTH INFORMATION MGMT Social History Type Status Start Date End Date Code Code Syst em Smoking History Never smoker (Never Smoked) 695025228 SNOMED CT Sex Female Hospital Discharge Instructions [...] Code System No Known Drug Allergies Active 296201610 SNOMED-CT Plan of Treatment Pre-Op Testing 07/13/2020 Pre-Op Testing 05/25/2020 BONE DENSITY DEXA SPINE & HIP 4 BONE DENSITY DEXA SPINE & HIP 2 Encounters Encounter Diagnosis Start Date Code Code Sys tem Hip joint prosthesis present 08/14/2021 690435932 SNOMED-CT Personal Care Team Section Performer Name Performer Role Active Date Inactive Da te
--- OUTSIDE RECORDS SUMMARY | 2023-11-25 18:49 | XMS_ITS | Encounter Summary ---
Author Organization [facility] Address [address] [place] [address] Care Team Providers Care Banquet Chef Name Role Phone Unknown, Provider Primary Care Provider [phone] Encounter Details Date Type Department Care Team (Late st Contact Info) Description 07/26/2013 Results [facility] [phone] Yung Talamantes PA [address] ,[facility] [address] [place] [address] Social History Tobacco Use Types Packs/Day Years Used Date Smoking Tobacco: Never Assessed Sex and Gender Information Value Date Recorded Sex Assigned at Not on file Gender Identity Not on file Sexual Orientation Not on file documented as of this encounter Plan of Treatment Not on file documented as of this encounter Procedures Procedure Name Priority Date/Time Associated Diagnosis Comments SURGICAL PATHOLOGY Routine 07/26/2013 9:26 EDT documented in this encounter Results * SURGICAL PATHOLOGY (07/26/2013 9:26 EDT) Pathology Report: SURGICAL PATHOLOGY REPORT Reports generated via electronic interface contain original data; however they are lacking the format of the original report. Caution should be taken when reading/interpreti ng unformatted reports. Name: ? ALFA CARDOZA ? Accession #: ? [id number] ? : ? 1945 (Age: 67) ??F ? Collect Date: ? 07/26/2013 ? Location: ? [facility] ? Receive Date: ? 07/26/2013 ? Provider: YUNG LOPEZ Copy to: MARIJA DYSON SWIMMING POOL SERVICER ? Final Pathologic Diagnosis: A. ??SKIN OF CHEEK, RIGHT MEDIAL MALAR, SHAVE BIOPSY: - Basal cell carcinoma, infiltrative type. ??See microscopic and comment. ?? - Lesion extends to peripheral edge and base of biopsy specimen. B. ??SKIN OF THIGH, RIGHT ANTERIOR PROXIMAL, PUNCH BIOPSY: - Lichenoid interface dermatitis. ?? Comment: In specimen B, the features are those of a lichenoid interface dermatitis. ??The features could be consistent with lichen planus in the correct clinical contact. (Dr. Garibay)/[facility] Microscopic Description: A-Emanating from the epidermis and extending into the dermis are irregularly shaped islands and cords of atypical basal cells. ??Many of the islands are small and angulate. ??The basal cells have scant cytoplasm and round dark nuclei. Mitotic figures and apoptotic bodies are evident. ??Some nuclei at the periphery of some of the larger islands have a palisaded arrangement. ??There is fibroplasia and myxoid change of the stroma with cleft formation between some of the islands and stroma. ? B-Sections consist of a punch biopsy of skin. ??There is basketweave to compacted orthohyperkeratosi s overlying an epidermis which shows evidence of vacuolar interface alteration. The keratinocytes are reactive with glassy eosinophilic cytoplasm. There is hypergranulosis. Within the dermis is an interstitial lymphomononuclear infiltrate which includes dermal melanophages. ??(Dr. Garibay)/n Document reviewed and electronically signed by: DYAN GARIBAY MD Report ??Date: 07/28/2013 14:59 By the signature above, the attending physician certifies that he/she has personally conducted a gross and/or microscopic examination of the described specimens and rendered or confirmed the above diagnosis. Specimen(s) Received: A. ??Right medial malar cheek B. ??Right anterior proximal thigh Clinical History: A. ??Papule, DDx: Neoplasm of uncertain behavior vs. basal cell carcinoma vs other; please check margins; would refer to Mohs; B. DDx: Lichen planus vs other; clinical diagnosis code: 238.2, 692.9 Gross Description: A. ?Received in formalin labelled with proper patient identification (initials R, K) and A. right medial malar cheek is a shave biopsy of an irregular carmichael-white scaled papule (0.3 x 0.3 x less than 0.1 cm). ??The margin is inked. Submitted intact in A1. B. ?Received in formalin labelled with proper patient identification (initials R, K) and D. right anterior proximal thigh is a punch biopsy of carmichael-white skin (0.3 cm in diameter and 0.2 cm in thickness). Submitted intact in B1. Maddison Carroll 07/27/2013 09:52 AM End of Report [facility] 07/26/2013 9:26 EDT 07/26/2013 9:26 EDT Yung LOPEZ PATHOLOGY ORDERABLE S [facility] [address] [place] [address] documented in this encounter Visit Diagnoses Not on filedocumented in this encounter Care Teams Banquet Chef Relationship Specialty Start Date End Date Unknown, Provider, PCP - General 06/22/08 06/07/21 documented as of this encounter
--- OUTSIDE RECORDS SUMMARY | 2023-11-25 18:49 | XMS_ITS | Encounter Summary ---
Author Organization [facility] Address [address] [place] [address] Care Team Providers Care Surgery Technician Name Role Phone Unknown, Provider Primary Care Provider [phone] Reason for Visit * Reason Onset Date Comments Basal Cell Carcinoma 07/26/2013 Scheduled f or Mohs surgery on the right medial malar cheek on 08/20/[address] Chung. Patient canceled and did not reschedule surgery. Encounter Details Date Type Department Care Team (Late st Contact Info) Description 09/17/2013 Telephone [facility] Dermatology 5th Floor [facility] [address], [place] [phone] Star Chung MD [address] [facility], [address] [place] [address] Basal Cell Carcinoma (Scheduled for Mohs surgery on the right medial malar cheek on 08/20/[address] Chung. Patient canceled and did not reschedule surgery.) Social History Tobacco Use Types Packs/Day Years Used Date Smoking Tobacco: Never Assessed Sex and Gender Information Value Date Recorded Sex Assigned at Not on file Gender Identity Not on file Sexual Orientation Not on file documented as of this encounter Miscellaneous Notes * Telephone Encounter - Marylu Hall - 09/17/2013 1003 EDT Informed [facility] that patient canceled Mohs surgery scheduled for 08/20/13 with . Marylu Hall 09/17/2013 10:06 documented in this encounter Plan of Treatment Not on file documented as of this encounter Visit Diagnoses Not on filedocumented in this encounter Care Teams Surgery Technician Relationship Specialty Start Date End Date Unknown, Provider, PCP - General 06/22/08 06/07/21 documented as of this encounter
--- OUTSIDE RECORDS SUMMARY | 2023-11-25 18:49 | XMS_ITS | Encounter Summary ---
Author Organization [facility] Address [address] [place] [address] Care Team Providers Care Museum Archivist Name Role Phone Unknown, Provider Primary Care Provider [phone] Adela Cohn Primary Care Provider [phone] Encounter Details Date Type Department Care Team (Late st Contact Info) Description 10/26/2020 Lab Requisition [facility] Pathology & Laboratory Medicine - [facility] [address] [place] [address] Outr Resulting Lab, Provider Social History Tobacco Use Types Packs/Day Years Used Date Smoking Tobacco: Never Assessed Sex and Gender Information Value Date Recorded Sex Assigned at Not on file Gender Identity Not on file Sexual Orientation Not on file documented as of this encounter Plan of Treatment Not on file documented as of this encounter Procedures Procedure Name Priority Date/Time Associated Diagnosis Comments H. PYLORI ANTIGEN Routine 10/26/2020 10: 30 EDT documented in this encounter Results * H. PYLORI ANTIGEN (10/26/2020 10:30 EDT) H. Pylori Negative Negative 10/31/2020 14:53 EDT [facility] Feces SPECIMEN FROM RECTUM / Unknown 10/26/2020 10:30 EDT 10/26/2020 20:35 EDT Narrative [facility] - 10/31/2020 14:53 EDT Results were obtained with the [employer] [place] [facility]. Provider Outr Resulting Lab MICROBIOLOGY - GENERAL ORDERABLES [facility] [address] [place] [address] documented in this encounter Visit Diagnoses Not on filedocumented in this encounter Care Teams Museum Archivist Relationship Specialty Start Date End Date Unknown, Provider, PCP - General 06/22/08 06/07/21 Adela Cohn, SORT SUPERVISOR [address] [place] [phone] PCP - General Family Medicine - Primary Care 06/08/21 documented as of this encounter
--- OUTSIDE RECORDS SUMMARY | 2023-11-25 18:49 | XMS_ITS | Encounter Summary ---
Author Organization [facility] Address [address] [place] [address] Care Team Providers Care Registered Travel Nurse Name Role Phone Adela Cohn [facility] Primary Care Provider [phone] Encounter Details Date Type Department Care Team (Late st Contact Info) Description 07/31/2021 Telephone [facility] Vascular Surgery - [address] [id number] Emigdio Angel MD Social History Tobacco Use Types Packs/Day Years Used Date Smoking Tobacco: Never Smokeless Tobacco: Never Sex and Gender Information Value Date Recorded Sex Assigned at Not on file Gender Identity Not on file Sexual Orientation Not on file documented as of this encounter Miscellaneous Notes * Telephone Encounter - Gisele Madison RN - 07/31/2021 1457 EDT Returned call to patient- question about stockings after her sclerotherapy- She is now having some varicosities noticed on her right leg and wondering if she can have those injected as well. Will forward to . GISELE MADISON RN 07/31/2021 15:03 * Telephone Encounter - Mckenzie Gregory - 07/31/2021 1445 EDT Patient calling with questions about compression stockings after sclerotherapy injections documented in this encounter Plan of Treatment Not on file documented as of this encounter Visit Diagnoses Not on filedocumented in this encounter Care Teams Registered Travel Nurse Relationship Specialty Start Date End Date Adela Cohn FNP [address] [place] [phone] PCP - General Family Medicine - Primary Care 06/08/21 documented as of this encounter
--- OUTSIDE RECORDS SUMMARY | 2023-11-25 18:49 | XMS_ITS | Encounter Summary ---
Author Organization [facility] Address [address] [place] [address] Care Team Providers Care Zipper Slide Attacher Name Role Phone Adela Cohn [facility] Primary Care Provider [phone] Reason for Visit * Vascular Lab (Routine) - Authorization Not Required Specialty Diagnoses / Procedures Referred By Contac t Referred To Contact Diagnoses Venous insufficiency Procedures US VARICOSE VEIN DUPLEX Emigdio Angel MD [address] [place], [place] [id number] [place] [address] Vascular Lab Referral ID Status Reason Start Date Expiration Date Visits Requested Visits Authorized [id number] Authorization Not Required 07/31/2021 1 1 Encounter Details Date Type Department Care Team (Latest Contact Info) Description 08/22/2021 11:00 EDT Ancillary Procedure [facility] Vascular Surgery - Main [place] [address] [place] [address] Venous insufficiency Social History Tobacco Use Types Packs/Day Years [...] Date/Time Associated Diagnosis Comments ORDERS - SCANNED 11/14/2021 23:3 6 EDT US VARICOSE VEIN DUPLEX RIGHT Routine 08/22/2021 11:46 EDT Venous insufficiency documented in this encounter Results * ORDERS - SCANNED (11/14/2021 23:36 EDT) 11/14/2021 23:3 6 EDT Scan 2 Licensed Bondsman ADMISSION ORDERABLE S * US VARICOSE VEIN DUPLEX RIGHT (08/22/2021 11:46 EDT) Right GSMT cielo 0.27 cm MERGE CARDIO Right GSPT cielo 0.28 cm MERGE CARDIO Right GSJ cielo 0.37 cm MERGE CARDIO Right SSPC cielo 0.16 cm MERGE CARDIO Right GSJ reflux 0.0 s MERGE CARDIO Right GSPT reflux 0.0 s MERGE CARDIO Right GSMT reflux 0.0 s MERGE CARDIO Right SSPC reflux 0.0 s MERGE CARDIO Anatomical Region Laterality Modality Vascular Ultrasound Narrative 08/24/2021 15:42 EDT No reflux noted in the right deep or superficial veins. The right great saphenous vein is not a single continuous vessel starting at the distal thigh. No evidence of deep or superficial venous thrombosis in the right lower extremity. Right Lower Venous Other All other visualized veins in the right lower extremity demonstrated normal compressibility with no intraluminal echoes present. Venous HPI and Indications Right VVI Venous Past Medical History Varicose veins. Emigdio Angel MD IMG US VASCULAR O RDERABLES documented in this encounter Visit Diagnoses Diagnosis Venous insufficiency Unspecified venous (peripheral) insufficiency documented in this encounter Care Teams Zipper Slide Attacher Relationship Specialty Start Date End Date Adela Cohn FNP [address] [place] [address] [phone] PCP - General Family Medicine - Primary Care 06/08/21 documented as of this encounter
--- OUTSIDE RECORDS SUMMARY | 2023-11-25 18:49 | XMS_ITS ---
Author Organization Unknown Address [address] [place] [address] [phone] Phone Care Team Providers Care Babbitter Name Role Phone MARTY James Attending Unavailable Results BD DXA BONE DENSITY AXIAL - Completed: 08/23/2021 15:54 LOINC: DEXA SCAN: The study was performed on a Evolve IP unit, [employer] Model.? Comparison is made to prior DEXA scan of May 2020. Total lumbar spine T-score is minus 2.4.?? Prior 2020 reading was minus 2.7.?? Total right hip T-score (left hip prosthesis) is minus 2.6.?? Independent reading at the femoral neck yields a T-score of minus 2.8.?? IMPRESSION: Bone mineral density is in the osteoporosis range.?? Fracture risk is high. Dictated by: JORGE A SIMONS MD Transcribed by: MARCIA 08/24/2108:16 D July 4:06:03 PM [id number] Electronically Reviewed and Signed By: JEANNETTE SIMONS MD 08/24/21 21:00 Copy for: MARTY James via fax Copy for: 185 [facility]ALTH INFORMATION MGMT Social History Type Status Start Date End Date Code Code Syst em Smoking History Never smoker (Never Smoked) 438845151 SNOMED CT Sex Female Hospital Discharge Instructions [...] Code System No Known Drug Allergies Active 419913441 SNOMED-CT Plan of Treatment Pre-Op Testing 07/13/2020 Pre-Op Testing 05/25/2020 BONE DENSITY DEXA SPINE & HIP 4 BONE DENSITY DEXA SPINE & HIP 2 Encounters Encounter Diagnosis Start Date Code Code Sys tem Age-related osteoporosis wit hout current pathological fracture 08/23/2021 SNOMED-CT Personal Care Team Section Performer Name Performer Role Active Date Inactive Da te
--- OUTSIDE RECORDS SUMMARY | 2023-11-25 18:49 | XMS_ITS ---
Author Organization Unknown Address [address] [place] [address] [phone] Phone Care Team Providers Care Sweater Operator Name Role Phone MARTY James Attending Unavailable Results BD DXA BONE DENSITY HIP AND SPINE - Completed: 10/08/2023 08:55 LOINC: [facility] [place], [place] [address] RADIOLOGY MOTORCYCLE DELIVERY DRIVER REPORT Patient Name: ALFA CARDOZA MRN: Sex: : Age: [id number] F 1945 [id number] Account: Accession: Admit: StayType: [id number] 10/08/2023 O Ordered: Order ID: Submitted: Ordering Provider: 10/08/2023 08:24 [id number] KT VESNA FERGUSON Completed: Technologist: Resulted: 10/08/2023 08:34 DA 10/09/2023 08:33 EXAMINATION: BD DXA BONE DENSITY HIP AND SPINE CLINICAL HISTORY: Reason for Spine: Osteoporosis Add'l Info: TECHNIQUE: Scans were acquired at the lumbar spine, RIGHT hip. COMPARISON: August 23, 2021 FINDINGS: Bone mineral density in the lumbar spine L1-L4 is 0.900 g/sq cm with T score -1.3. There is 19.9% increase in bone mineral density compared to 2020 with 15.2% increase compared to 2021. Bone mineral density in the right hip is 0.633 g/sq cm with T score -2.5. Bone mineral density in the right femoral neck is 0.594 g/sq cm with T score -2.3. There is 2.3% increase in bone mineral density compared to 202. IMPRESSION: Osteoporosis in the right hip. ___ Prevent Fractures! PATIENTS NOT ON TREATMENT: For patients with osteopenia, *the fracture risk calculated by FRAX is displayed below*. Offer treatment for osteoporosis (calcium, vitamin D, and medication) if: * T less than or equal to -2.5, after excluding or treating secondary causes * FRAX gives a 10-year risk of hip fracture greater than or equal to 3% or major osteoporotic fracture (MOF) greater than or equal to 20% * Fragility fracture, regardless of T score (fracture without trauma, or from trauma equivalent to falling from standing height or less) If not treating, repeat DXA at the following intervals: * T greater than or equal to -1(normal): Repeat DXA in 10-15 years * T -1.0 to -1.5 (mild osteopenia): Repeat DXA in 10-15 years * T -1.5 to 2.0 (moderate osteopenia): Repeat DXA in 5 years * T -2.0 to -2.5 (severe osteopenia): Repeat DXA in 2 years The bone density raw data are listed below. Bone density raw data: Thank you for letting us participate in the care of this patient. If you are a health care provider and have any questions regarding this report, please contact the number below. For patients who have questions please contact the health senior caregiver that requested your imaging first. Social History Type Status Start Date End Date Code Code Syst em Smoking History Never smoker (Never Smoked) 043132979 SNOMED CT Sex Female Hospital Discharge Instructions [...] Code System No Known Drug Allergies Active 320473926 SNOMED-CT Plan of Treatment Pre-Op Testing 07/13/2020 Pre-Op Testing 05/25/2020 BONE DENSITY DEXA SPINE & HIP 4 BONE DENSITY DEXA SPINE & HIP 2 Encounters Encounter Diagnosis Start Date Code Code Sys tem Senile osteoporosis 10/08/2023 44767710 SNOMED-C T Personal Care Team Section Performer Name Performer Role Active Date Inactive Da sowmya
--- OUTSIDE RECORDS SUMMARY | 2023-11-25 18:49 | XMS_ITS | Encounter Summary ---
Author Organization [facility] Address [address] [facility] [place] [address] Care Team Providers Care Room Attendant Name Role Phone Unavailable Primary Care Provider Unavailabl e Encounter Details Date Type Department Care Team (Late st Contact Info) Description 10/08/2023 Interpretation Only [facility] in [address] [phone] Vesna Cohn, [employer] [address] [place] [address] Social History Tobacco Use Types Packs/Day Years Used Date Smoking Tobacco: Never Assessed Sex and Gender Information Value Date Recorded Sex Assigned at Not on file Gender Identity Not on file Sexual Orientation Not on file documented as of this encounter Plan of Treatment Not on file documented as of this encounter Procedures Procedure Name Priority Date/Time Associated Diagnosis Comments DXA CENTRAL SPINE, HIP, AND/OR WHOLE BODY (GENERIC) Routine 10/08/2023 8:55 AM EDT documented in this encounter Results * DXA Central Spine, Hip, and/or Whole Body (Generic) (10/08/2023 8:55 AM EDT) PT CLASS O RAD ADMITDTTM [id number] RAD PT RAD MD INFO [id number]^TATEL^ VESNA^S RAD EXAM DESC XDXAC^BD DXA BONE DENSITY HIP AND SPINE^RIS RAD WORKSTATION ID [id number] RAD Anatomical Region Laterality Modality C-spine, Hip N/A Radiographic Kaylee ging Impressions 10/09/2023 8:33 AM EDT Osteoporosis in the right hip. ___ Prevent Fractures! PATIENTS NOT ON TREATMENT: For patients with osteopenia, *the fracture risk calculated by FRAX is displayed below*. Offer treatment for osteoporosis (calcium, vitamin D, and medication) if: * ??T less than or equal to -2.5, after excluding or treating secondary causes * ??FRAX gives a 10-year risk of hip fracture greater than or equal to 3% or major osteoporotic fracture (MOF) greater than or equal to 20% * ??Fragility fracture, regardless of T score (fracture without trauma, or from trauma equivalent to falling from standing height or less) If not treating, repeat DXA at the following intervals: * ??T greater than or equal to -1(normal): Repeat DXA in 10-15 years * ??T -1.0 to -1.5 (mild osteopenia): Repeat DXA in 10-15 years * ??T -1.5 to 2.0 (moderate osteopenia): Repeat DXA in 5 years * ??T -2.0 to -2.5 (severe osteopenia): Repeat DXA in 2 years The bone density raw data are listed below. Bone density raw data: Thank you for letting us participate in the care of this patient. ??If you are a health care provider and have any questions regarding this report, please contact the number below. ??For patients who have questions please contact the health career services representative that requested your imaging first. ? Electronically signed by: Bala Rg MD, [facility] ([phone]), at 10/09/2023 8:33 AM Narrative 10/09/2023 8:33 AM EDT EXAMINATION: BD DXA BONE DENSITY HIP AND SPINE CLINICAL HISTORY: ??Reason for Spine: ??Osteoporosis Add'l Info: TECHNIQUE: Scans were acquired at the lumbar spine, RIGHT hip. COMPARISON: August 23, 2021 FINDINGS: ?? Bone mineral density in the lumbar spine L1-L4 is 0.900 g/sq cm with T score -1.3. There is 19.9% increase in bone mineral density compared to 202 with 15.2% increase compared to 202. Bone mineral density in the right hip is 0.633 g/sq cm with T score -2.5. Bone mineral density in the right femoral neck is 0.594 g/sq cm with T score -2.3. There is 2.3% increase in bone mineral density compared to 202. Procedure Note Bala Rg MD - 10/09/2023 EXAMINATION: BD DXA BONE DENSITY HIP AND SPINE CLINICAL HISTORY: Reason for Spine: Osteoporosis Add'l Info: TECHNIQUE: Scans were acquired at the lumbar spine, RIGHT hip. COMPARISON: August 23, 2021 FINDINGS: Bone mineral density in the lumbar spine L1-L4 is 0.900 g/sq cm with Tscore -1.3. There is 19.9% increase in bone mineral density compared to 202 with15.2% increase compared to 2022. Bone mineral density in the right hip is 0.633 g/sq cm with T score-2.5. Bone mineral density in the right femoral neck is 0.594 g/sq cm with Tscore -2.3. There is 2.3% increase in bone mineral density compared to 2022. IMPRESSION Osteoporosis in the right hip. ___ Prevent Fractures! PATIENTS NOT ON TREATMENT: For patients with osteopenia, *the fracture risk calculated by FRAX isdisplayed below*. Offer treatment for osteoporosis (calcium, vitamin D, and medication)if: * T less than or equal to -2.5, after excluding or treating secondarycauses * FRAX gives a 10-year risk of hip fracture greater than or equal to 3%or major osteoporotic fracture (MOF) greater than or equal to 20% * Fragility fracture, regardless of T score (fracture without trauma, orfrom trauma equivalent to falling from standing height [...] in the care of this patient. If youare a health care provider and have any questions regarding this report,please contact the number below. For patients who have questions please contactthe health career services representative that requested your imaging first. Electronically signed by: Bala Rg MD, [facility]([phone]), at 10/09/2023 8:33 AM [facility] SHAH DEXA ORDERABLES documented in this encounter Visit Diagnoses Not on filedocumented in this encounter
--- OUTSIDE RECORDS SUMMARY | 2023-11-25 18:49 | XMS_ITS ---
Author Organization Unknown Address [address] [place] [phone] Phone Care Team Providers Care Mill Washer Name Role Phone CARSON Henry Attending Unavailable MARTY James Primary Unavailable Social History Type Status Start Date End Date Code Code Syst em Smoking History Never smoker (Never Smoked) 125543010 SNOMED CT Sex Female Hospital Discharge Instructions [...] Code System No Known Drug Allergies Active 538625575 SNOMED-CT Plan of Treatment Pre-Op Testing 07/13/2020 Pre-Op Testing 05/25/2020 BONE DENSITY DEXA SPINE & HIP 4 BONE DENSITY DEXA SPINE & HIP 2 Encounters Encounter Diagnosis Start Date Code Code Sys tem Snoring 07/06/2021 SNOMED-CT Personal Care Team Section Performer Name Performer Role Active Date Inactive Da te
--- OUTSIDE RECORDS SUMMARY | 2023-11-25 18:49 | XMS_ITS | Clinical Summary ---
Author Organization [facility] Address [address] [facility] [place] [address] Care Team Providers Care Production Mechanic Tin Cans Name Role Phone Unavailable Primary Care Provider Unavailabl e Encounters Date Type Department Care Team Description 10/08/2023 Interpretation Only [facility] in [address] [phone] Vesna Cohn APRN from Last 3 Months Social History Tobacco Use Types Packs/Day Years Used Date Smoking Tobacco: Never Assessed Sex and Gender Information Value Date Recorded Sex Assigned at Not on file Gender Identity Not on file Sexual Orientation Not on file Plan of Treatment Health Maintenance Due Date Last Done Comments Hepatitis C Screening 1963 Tetanus/Diphtheria/Pertussis Vaccines (1 - Tdap) 11/20 Zoster vaccine (1 of 2) 1996 Advance Directive 2001 Pneumoccocal Vaccine: 65+ (1 of 1 - PCV) 11/21/2011 Covid-19 Vaccine (1 - season) 2023 Influenza (Flu) vaccine (1 o f 1 - Influenza standard series) 10/26/2023 Bone Density Scan 10/07/2038 10/08/2023 Procedures Procedure Name Priority Date/Time Associated Diagnosis Comments DXA CENTRAL SPINE, HIP, AND/OR WHOLE BODY (GENERIC) Routine 10/08/2023 8:55 AM EDT from Last 3 Months Results * DXA Central Spine, Hip, and/or Whole Body (Generic) (10/08/2023 8:55 AM EDT) PT CLASS O DH RAD ADMITDTTM [id number] RAD PT [facility] MD WANG [id number]^PEDROEL^ VESNA^S RAD EXAM DESC XDXAC^BD DXA BONE DENSITY HIP AND SPINE^RIS [facility] WORKSTATION ID [id number] [facility] Anatomical Region Laterality Modality C-spine, Hip N/A [...] who have questions please contact the health manager care that requested your imaging first. ? Narrative 10/09/2023 8:33 AM EDT EXAMINATION: BD [...] to 2020 with 15.2% increase compared to 202. Bone [...] in bone mineral density compared to 2020 with15.2% increase compared to 2022. Bone mineral [...] patients who have questions please contactthe health manager care that requested your imaging first. Vesna Cohn DEAF/HARD OF HEARING SPECIALIST IMG DEXA ORDERABLES from Last 3 Months
--- OUTSIDE RECORDS SUMMARY | 2023-11-25 18:49 | XMS_ITS ---
Author Organization Unknown Address [address] [place] [address] [phone] Phone Care Team Providers Care Employee Communications Intern Name Role Phone CARSON Henry Attending Unavailable MARTY James Primary Unavailable Social History Type Status Start Date End Date Code Code Syst em Smoking History Never smoker (Never Smoked) 313300122 SNOMED CT Sex Female Hospital Discharge Instructions [...] Code System No Known Drug Allergies Active 520252462 SNOMED-CT Plan of Treatment Pre-Op Testing 07/13/2020 Pre-Op Testing 05/25/2020 BONE DENSITY DEXA SPINE & HIP 4 BONE DENSITY DEXA SPINE & HIP 2 Encounters Encounter Diagnosis Start Date Code Code Sys tem Person consulting for explan ation of examination or test findings 09/12/2021 SNOMED-CT Personal Care Team Section Performer Name Performer Role Active Date Inactive Da te
--- OUTSIDE RECORDS SUMMARY | 2023-11-25 18:49 | XMS_ITS | Encounter Summary ---
Author Organization [facility] Address [address] [place] [address] Care Team Providers Care Mental Health Aide Name Role Phone Unknown, Provider Primary Care Provider [phone] Encounter Details Date Type Department Care Team (Late st Contact Info) Description 01/22/2010 Results Only [facility] [place] [address] [place] [phone] Kimberly Chávez MD Social History Tobacco Use Types Packs/Day Years Used Date Smoking Tobacco: Never Assessed Sex and Gender Information Value Date Recorded Sex Assigned at Not on file Gender Identity Not on file Sexual Orientation Not on file documented as of this encounter Plan of Treatment Not on file documented as of this encounter Procedures Procedure Name Priority Date/Time Associated Diagnosis Comments CYTOPATHOLOGY Routine 01/22/2010 0:00 EST documented in this encounter Results * CYTOPATHOLOGY (01/22/2010 0:00 EST) Pathology Report: CYTOPATHOLOGY REPORT ? Reports generated via electronic interface contain original data; ? however they are lacking the format of the original report. ? Caution should be taken when reading/interpreti ng unformatted reports. ? Name: ? ALFA CARDOZA ? Accession #: ? [id number] ? : ? 1945 (Age: 64) ??F ?Collect Date: ? 01/22/2010 ? Location: ? [facility] ? Receive Date: ? 01/23/2010 ? Provider: ?KIMBERLY CHÁVEZ MD ? Copy to: ? Specimen/Source: ?Pap Test, Cervix, ThinPrep Imaging System with manual ?? evaluation ? Last Menstrual Period: ? 54 years ? SPECIMEN ADEQUACY ? Satisfactory for Evaluation ? - assessment of transformation zone component not applicable ( e.g. atrophy, ? vaginal sample, hysterectomy) ? GENERAL CATEGORIZATION ? Negative for Intraepithelial Lesion or Malignancy ? Document reviewed and electronically signed by: ? Ashlee Tanja Obrien, CT(ASCP) ? Report Date: ??01/25/2010 13:26 ? End of Report ? [facility] 01/22/2010 01/23/2010 Kimberly Chávez MD PATHOLOGY ORDERABLE S [facility] [address] [place] [address] documented in this encounter Visit Diagnoses Not on filedocumented in this encounter Care Teams Mental Health Aide Relationship Specialty Start Date End Date Unknown, Provider, PCP - General 06/22/08 06/07/21 documented as of this encounter
--- OUTSIDE RECORDS SUMMARY | 2023-11-25 18:49 | XMS_ITS | Encounter Summary ---
Author Organization [facility] Address [address] [place] [address] Care Team Providers Care Physical Education Department Chair Name Role Phone Unknown, Provider Primary Care Provider [phone] Encounter Details Date Type Department Care Team (Latest Contact Info) Description 07/26/2013 12:38 EDT - 07/26/2013 22:00 EDT Hospital Encounter [facility] - [address] [address] Jade Talamantes, JESSICA [address],[facility] [address] [place] [phone] Discharge Disposition: Home or Self Care Social History Tobacco Use Types Packs/Day Years Used Date Smoking Tobacco: Never Assessed Sex and Gender Information Value Date Recorded Sex Assigned at Not on file Gender Identity Not on file Sexual Orientation Not on file documented as of this encounter Discharge Diagnoses Diagnosis 238.2 UNCERTAIN BEHAV NEOPL SKIN[ICD-9-CM] 692.9 DERMATITIS NOS[ICD-9-CM] documented in this encounter Discharge Disposition Disposition Code Departure Means Destination Home or Self Care documented in this encounter Plan of Treatment Not on file documented as of this encounter Visit Diagnoses Not on filedocumented in this encounter Care Teams Physical Education Department Chair Relationship Specialty Start Date End Date Unknown, Provider, PCP - General 06/22/08 06/07/21 documented as of this encounter
--- OUTSIDE RECORDS SUMMARY | 2023-11-25 18:50 | XMS_ITS ---
Author Organization Unknown Address [address] [place] [phone] Phone Care Team Providers Care New Accounts Banking Representative Name Role Phone MONTRELL ALMARAZ NP Attending Unavailable MARTY MALAGON Primary Unavailable Social History Type Status Start Date End Date Code Code Syst em Smoking History Never smoker (Never Smoked) 250232080 SNOMED CT Sex Female Hospital Discharge Instructions [...] Code System No Known Drug Allergies Active 139991115 SNOMED-CT Plan of Treatment Pre-Op Testing 07/13/2020 Pre-Op Testing 05/25/2020 BONE DENSITY DEXA SPINE & HIP 4 BONE DENSITY DEXA SPINE & HIP 2 Encounters Encounter Diagnosis Start Date Code Code Sys tem Hip joint prosthesis present 11/07/2020 494605978 SNOMED-CT Personal Care Team Section Performer Name Performer Role Active Date Inactive Da te
[2023-11-25 21:32] LABS: HCT 43.1 % (36.0-46.0); HGB 14.4 g/dL (11.2-15.7); MCH 30.3 pg (27.0-33.0); MCHC 33.4 % (32.0-36.0); MCV 91 fL (80-95); MPV 10.7 fL (8.0-11.0); Platelet Count 247 10^3/uL (130-400); RBC 4.75 10^6/uL (3.93-5.22); RDW 13.2 % (11.7-14.6); RDW-SD 43.8 fL; WBC 4.48 10^3/uL (4.4-10.8)
[2023-11-25 21:34] LABS: Prothrombin Time 10.3 sec (9.1-11.1)
[2023-11-25 22:39] LABS: ALT 40 U/L (14-59); AST 31 U/L (15-37); Alkaline Phosphatase 50 U/L (46-116); Anion Gap 8.4 mmol/L (3-11); BUN 20 mg/dL (7-18); Bilirubin, Total 0.51 mg/dL (0.2-1.0); CO2 28.6 mmol/L (21.0-32.0); CREATININE 0.6 mg/dL (0.55-1.02); Calcium 9.5 mg/dL (8.5-10.1); Calculated LDL 106 mg/dL (<100); Chloride 100 mmol/L (98-107); Cholesterol 230 mg/dL (<200); Estimated GFR 92.39 (mL/min/1.73m2); Glucose 100 mg/dL (74-106); HDL Cholesterol 119 mg/dL (40-60); Potassium 3.9 mmol/L (3.5-5.1); Sodium 137 mmol/L (136-145); Total Protein 7.5 g/dL (6.4-8.2); Triglyceride 29 mg/dL (<150); Vitamin D 25 Total 47.3 ng/mL (30-100)
== END 2023-11-25 18:40 | disposition home or self-care (01) ==
LOC: NCHCN 18:39
PROVIDERS: PCP Internal Medicine; Visit Provider Nurse Practitioner Family
DX: R58 Hemorrhage, not elsewhere classified (principal); E55.9 Vitamin D deficiency, unspecified
CPT/HCPCS: 80053; 80061; 82306; 85027; 85610

== ENCOUNTER 2024-11-25 09:27 | Outpatient (REF) | payer MEDICARE, OTHER, SELFPAY ==
[2024-11-25 14:06] LABS: HCT 42.8 % (36.0-46.0); HGB 14.2 g/dL (11.2-15.7); MCH 30.3 pg (27.0-33.0); MCHC 33.2 % (32.0-36.0); MCV 92 fL (80-95); MPV 11.1 fL (8.0-11.0); Platelet Count 207 10^3/uL (130-400); RBC 4.68 10^6/uL (3.93-5.22); RDW 12.8 % (11.7-14.6); RDW-SD 42.8 fL; WBC 5.42 10^3/uL (4.4-10.8)
[2024-11-25 15:14] LABS: Anion Gap 9.3 mmol/L (3-11); BUN 16 mg/dL (7-18); CO2 27.7 mmol/L (21.0-32.0); Calcium 9.1 mg/dL (8.5-10.1); Chloride 103 mmol/L (98-107); Estimated GFR 95.94 (mL/min/1.73m2); Glucose 94 mg/dL (74-106); Potassium 4.0 mmol/L (3.5-5.1); Sodium 140 mmol/L (136-145); Vitamin D 25 Total 63 ng/mL (30-100)
== END 2024-11-25 09:28 | disposition home or self-care (01) ==
LOC: NCHCN 09:27
PROVIDERS: PCP Internal Medicine; Visit Provider Nurse Practitioner Family
DX: M81.0 Age-related osteoporosis without current pathological fracture (principal)
CPT/HCPCS: 80048; 82306; 85027